=== PATIENT | female | born 1975 | race Caucasian/White ===

== ENCOUNTER 2019-05-24 00:44 | Emergency (ER) | payer SELFPAY ==
[~2019-05-24] VITALS: Ht 160 cm; Wt 59.0 kg
[2019-05-24 00:46] VITALS: Ht 160 cm; Wt 59.0 kg
[2019-05-24 05:43] VITALS: BP 131/47
== END 2019-05-24 05:43 | disposition home or self-care (01) ==
LOC: ED 00:44
DX: S93.402A Sprain of unspecified ligament of left ankle, initial encounter (principal); S80.01XA Contusion of right knee, initial encounter; W01.0XXA Fall on same level from slipping, tripping and stumbling without subsequent striking against object, initial encounter; Y93.41 Activity, dancing; Y92.89 Other specified places as the place of occurrence of the external cause; Y99.8 Other external cause status
CPT/HCPCS: Q0092